=== PATIENT | female | born 1980 | race Caucasian/White ===

== ENCOUNTER 2022-04-10 22:33 | Emergency (ER) | payer OTHER ==
[~2022-04-10] VITALS: Ht 170.2 cm; Wt 99.8 kg
--- NOTE | 2022-04-10 22:56 | NUR ---
pt to ER w/ c/o lower back pain / burning in nature s/p ground-level mechanical fall onto left buttock. Pt has Hx degenerative disc disease. Ambulates with slow, steady gait, but pain is exacerbated with ambulation. Pt denies loss of bowel function or urinary incontinence. Pt states pressure-like sensation to coccyx.
[2022-04-10 22:58] VITALS: BP_SYST 116
--- NOTE | 2022-04-11 01:08 | NUR ---
ER Dr. Valentino at bedside examining patient.
[2022-04-11] MEDS ORDERED: MORPHINE 4 MG INJ. 4 MG/ML VIAL IVP ONE (01:15)
[2022-04-11] MEDS ORDERED: LORazepam 2 MG/ML VIAL IVP ONE (01:15)
[2022-04-11] MEDS ORDERED: DEXAMETHASONE SOD PHOSPHATE 10 MG/ML VIAL IVP ONE (01:15)
[2022-04-11] MEDS ORDERED: NACL 0.9% 1,000 ML IV ONE (01:30)
[2022-04-11] MEDS ORDERED: LORazepam 2 MG/ML VIAL ONE (01:30)
--- NOTE | 2022-04-11 02:33 | NUR ---
Pt returned from [place] via [place] accompanied by staff.
[2022-04-11 04:40] VITALS: BP_SYST 117
--- NOTE | 2022-04-11 04:40 | NUR ---
Patient given written and verbal discharge instructions and verbalizes understanding. ER Dr. Perea discussed with patient the results and treatment provided. Patient in stable condition. ID arm band removed. IV catheter removed intact and dressing applied, no active bleeding. Rx of [place], valium, and prednisone given. Patient educated on pain management and to follow up with PMD. Pain Scale 3. Opportunity for questions provided and answered. Medication side effect fact sheet provided.
== END 2022-04-11 04:40 | disposition home or self-care (01) ==
LOC: SED 22:33
DX: M54.16 Radiculopathy, lumbar region (principal)
CPT/HCPCS: 36415; 72131; 76376; 84702; 96361; 96374; 96375; 99284; J1100; J2060; J2270; J7030